=== PATIENT | male | born 1975 | race Caucasian/White ===

== ENCOUNTER 2017-02-05 19:19 | Emergency (ER) | payer BC ==
[2017-02-05 19:24] VITALS: TEMP 98
[2017-02-05] MEDS ORDERED: PANTOPRAZOLE 40 MG/10 ML VIAL IVP STA (19:56)
[2017-02-05] MEDS ORDERED: ACETAMINOPHEN IV (For NPO) 1,000 MG in EMPTY BAG 1 BAG IVPB STA (19:56)
[2017-02-05] MEDS ORDERED: SODIUM CHLORIDE 0.9% 1,000 ML IV STA (19:56)
[2017-02-05] MEDS ORDERED: MAG HYDROX/AL HYDROX/SIMETH 30 ML, HYOSCYAMINE ELIXIR 10 ML, CIMETIDINE HCL 300 MG PO STA ×3 (19:56)
[2017-02-05] MEDS ORDERED: RX INFO: IV CONTRAST WAS GIVEN 1 EACH MISC MISCELLANE PRN (19:56)
[2017-02-05] MEDS ORDERED: ONDANSETRON 4 MG/2 ML VIAL IVP STA (19:56)
--- NOTE | 2017-02-05 19:58 | ED ---
General Adult HPI - General Source: patient, RN notes reviewed, old records reviewed Mode of arrival: ambulatory Limitations: no limitations <Curtis Grigsby - Last Filed: 02/05/17 19:57> <Ty Marroquin - Last Filed: 02/05/17 22:50> - General Chief complaint: Nausea/Vomiting/Diarrhea Stated complaint: Nauseated Time Seen by Provider: 02/05/17 19:43 - History of Present Illness Initial comments: This is a 41-year-old male here for evaluation of bowel pain. Nonspecific abdominal pain episodic for weeks to months, occasionally happens, gets worse and better. Patient has no medical history aside from obesity. Takes no medications again drinks occasionally and does not smoke. He denies modifying factors for symptoms, he states usually gets pain usually eat or drink some water and it helps. This time is not getting any better. He does have occasional nausea and vomiting. Occasional diarrhea although not significant, less than 5 times a day. Patient denies blood disorders vomit. No prior history of abdominal surgery, no prior evaluation for symptoms. (Curtis Grigsby) - Related Data Home Medications Medication Instructions Recorded Confirmed Acetaminophen Tab [Tylenol Tab] 1,000 mg PO Q6HR 02/05/17 02/05/17 Ibuprofen [Motrin] 200 - 400 mg PO Q6HR PRN 02/05/17 02/05/17 Multivitamins, Thera [Multivitamin 1 tab PO DAILY 02/05/17 02/05/17 (formulary)] Allergies Allergy/AdvReac Type Severity Reaction Status Date / Time No Known Allergies Allergy Verified 02/05/17 19:27 Review of Systems ROS Other: All systems not noted in ROS Statement are negative. <Curtis Grigsby - Last Filed: 02/05/17 19:57> ROS Other: All systems not noted in ROS Statement are negative. <Ty Marroquin - Last Filed: 02/05/17 22:50> ROS Statement: Those systems with pertinent positive or pertinent negative responses have been documented in the HPI. Past Medical History Past Medical History: No Reported History History of Any Multi-Drug Resistant Organisms: None Reported Past Surgical History: Appendectomy Past Psychological History: No Psychological Hx Reported Smoking Status: Never smoker Past Alcohol Use History: Occasional Past Drug Use History: None Reported <Curtis Grigsby - Last Filed: 02/05/17 19:57> General Exam Limitations: no limitations General appearance: alert, in no apparent distress Head exam: Present: atraumatic, normocephalic, normal inspection Eye exam: Present: normal appearance, PERRL, EOMI. Absent: scleral icterus, conjunctival injection, periorbital swelling ENT exam: Present: normal exam, mucous membranes moist Neck exam: Present: normal inspection. Absent: tenderness, meningismus, lymphadenopathy Respiratory exam: Present: normal lung sounds bilaterally. Absent: respiratory distress, wheezes, rales, rhonchi, stridor Cardiovascular Exam: Present: regular rate, normal rhythm, normal heart sounds. Absent: systolic murmur, diastolic murmur, rubs, gallop, clicks GI/Abdominal exam: Present: soft, normal bowel sounds. Absent: distended, tenderness, guarding, rebound, rigid Extremities exam: Present: normal inspection, full ROM, normal capillary refill. Absent: tenderness, pedal edema, joint swelling, calf tenderness Back exam: Present: normal inspection Neurological exam: Present: alert, oriented X3, CN II-XII intact Psychiatric exam: Present: normal affect, normal mood Skin exam: Present: warm, dry, intact, normal color. Absent: rash <Curtis Grigsby - Last Filed: 02/05/17 19:57> Course <Curtis Grigsby - Last Filed: 02/05/17 19:57> <Ty Marroquin - Last Filed: 02/05/17 22:50> Vital Signs 02/05/17 19:22 Temperature 98 F Pulse Rate 89 Respiratory 20 Rate Blood Pressure 158/90 O2 Sat by Pulse 97 Oximetry - Reevaluation(s) Reevaluation #1: 02/05/17 19:58 Patient does have symptomatic improvement (Curtis Grigsby) Medical Decision Making - Lab Data Result diagrams: 02/05/17 20:30 02/05/17 20:30 <Ty Marroquin - Last Filed: 02/05/17 22:50> - Lab Data Lab Results 02/05/17 02/05/17 02/05/17 Range/Units 20:30 20:30 20:30 WBC 12.5 H (3.8-10.6) k/uL RBC 5.43 (4.30-5.90) m/uL Hgb 15.9 (13.0-17.5) gm/dL Hct 47.1 (39.0-53.0) % MCV 86.8 (80.0-100.0) fL MCH 29.3 (25.0-35.0) pg MCHC 33.8 (31.0-37.0) g/dL RDW 15.2 (11.5-15.5) % Plt Count 202 (150-450) k/uL Neutrophils % 87 % Lymphocytes % 7 % Monocytes % 3 % Eosinophils % 2 % Basophils % 0 % Neutrophils # 10.9 H (1.3-7.7) k/uL Lymphocytes # 0.8 L (1.0-4.8) k/uL Monocytes # 0.4 (0-1.0) k/uL Eosinophils # 0.2 (0-0.7) k/uL Basophils # 0.1 (0-0.2) k/uL Sodium 146 H (137-145) mmol/L Potassium 4.4 (3.5-5.1) mmol/L Chloride 109 H (98-107) mmol/L Carbon Dioxide 23 (22-30) mmol/L Anion Gap 14 mmol/L BUN 24 H (9-20) mg/dL Creatinine 0.90 (0.66-1.25) mg/dL Est GFR (MDRD) Af Amer >60 (>60 ml/min/1.73 sqM) Est GFR (MDRD) Non-Af >60 (>60 ml/min/1.73 sqM) Glucose 146 H (74-99) mg/dL Plasma Lactic Acid Jordan 1.7 (0.7-2.0) mmol/L Calcium 10.0 (8.4-10.2) mg/dL Total Bilirubin 0.7 (0.2-1.3) mg/dL AST 37 (17-59) U/L ALT 63 (21-72) U/L Alkaline Phosphatase 60 (38-126) U/L Total Protein 7.9 (6.3-8.2) g/dL Albumin 4.8 (3.5-5.0) g/dL Amylase 61 (30-110) U/L Lipase 144 (23-300) U/L Urine Color Urine Appearance (Clear) Urine pH (5.0-8.0) Ur Specific [place] (1.001-1.035) Urine Protein (Negative) Urine Glucose (UA) (Negative) Urine Ketones (Negative) Urine Blood (Negative) Urine Nitrite (Negative) Urine Bilirubin (Negative) Urine Urobilinogen (<2.0) mg/dL Ur Leukocyte Esterase (Negative) 02/05/17 Range/Units 20:30 WBC (3.8-10.6) k/uL RBC (4.30-5.90) m/uL Hgb (13.0-17.5) gm/dL Hct (39.0-53.0) % MCV (80.0-100.0) fL MCH (25.0-35.0) pg MCHC (31.0-37.0) g/dL RDW (11.5-15.5) % Plt Count (150-450) k/uL Neutrophils % % Lymphocytes % % Monocytes % % Eosinophils % % Basophils % % Neutrophils # (1.3-7.7) k/uL Lymphocytes # (1.0-4.8) k/uL Monocytes # (0-1.0) k/uL Eosinophils # (0-0.7) k/uL Basophils # (0-0.2) k/uL Sodium (137-145) mmol/L Potassium (3.5-5.1) mmol/L Chloride (98-107) mmol/L Carbon Dioxide (22-30) mmol/L Anion Gap mmol/L BUN (9-20) mg/dL Creatinine (0.66-1.25) mg/dL Est GFR (MDRD) Af Amer (>60 ml/min/1.73 sqM) Est GFR (MDRD) Non-Af (>60 ml/min/1.73 sqM) Glucose (74-99) mg/dL Plasma Lactic Acid Jordan (0.7-2.0) mmol/L Calcium (8.4-10.2) mg/dL Total Bilirubin (0.2-1.3) mg/dL AST (17-59) U/L ALT (21-72) U/L Alkaline Phosphatase (38-126) U/L Total Protein (6.3-8.2) g/dL Albumin (3.5-5.0) g/dL Amylase (30-110) U/L Lipase (23-300) U/L Urine Color Yellow Urine Appearance Clear (Clear) Urine pH 5.0 (5.0-8.0) Ur Specific [place] 1.026 (1.001-1.035) Urine Protein Negative (Negative) Urine Glucose (UA) Negative (Negative) Urine Ketones Negative (Negative) Urine Blood Negative (Negative) Urine Nitrite Negative (Negative) Urine Bilirubin Negative (Negative) Urine Urobilinogen <2.0 (<2.0) mg/dL Ur Leukocyte Esterase Negative (Negative) Disposition <Curtis Grigsby - Last Filed: 02/05/17 19:57> <Ty Marroquin - Last Filed: 02/05/17 22:50> Clinical Impression: Abdominal pain Disposition: HOME SELF-CARE Condition: Fair Instructions: Acute Diarrhea (ED), Abdominal Pain (ED) Referrals: Anthony Dobbins MD [Primary Care Provider] - 1-2 days Justin Sanz MD [STAFF PHYSICIAN] - 1-2 days
[2017-02-05 20:41] LABS: Basophils # (A) 0.1 k/uL (0-0.2); Basophils % (A) 0 %; CH 29.8; CHCM 34.6; Eosinophils # (A) 0.2 k/uL (0-0.7); Eosinophils % (A) 2 %; HCT 47.1 % (39.0-53.0); HDW 3.39; HGB 15.9 gm/dL (13.0-17.5); Luc # (Auto) 0.14; Luc % (Auto) 1; Lymphocytes # (A) 0.8 k/uL (1.0-4.8); Lymphocytes % (A) 7 %; MCH 29.3 pg (25.0-35.0); MCHC 33.8 g/dL (31.0-37.0); MCV 86.8 fL (80.0-100.0); Mean Platelet Volume 7.7; Monocytes # (A) 0.4 k/uL (0-1.0); Monocytes % (A) 3 %; Neutrophils # (A) 10.9 k/uL (1.3-7.7); Neutrophils % (A) 87 %; RBC 5.43 m/uL (4.30-5.90); RDW 15.2 % (11.5-15.5); WBC 12.5 k/uL (3.8-10.6); WBC (Perox) 12.45
[2017-02-05 20:46] LABS: Appearance,Urine Clear (Clear); Bilirubin,Urine Negative (Negative); Glucose,Urine (UA) Negative (Negative); Ketones,Urine Negative (Negative); Leukocyte Esterase,Urine Negative (Negative); Nitrite,Urine Negative (Negative); Protein,Urine Negative (Negative); Specific Gravity,Urine 1.026 (1.001-1.035); UA Billing (MACRO vs. MICRO) CHEM; Urobilinogen,Urine <2.0 mg/dL (<2.0)
[2017-02-05 21:01] LABS: ALT 63 U/L (21-72); AST 37 U/L (17-59); Alkaline Phosphatase 60 U/L (38-126); Amylase 61 U/L (30-110); Anion Gap 14 mmol/L; Blood Urea Nitrogen 24 mg/dL (9-20); Carbon Dioxide 23 mmol/L (22-30); Chloride 109 mmol/L (98-107); Glucose 146 mg/dL (74-99); Non-African American GFR(MDRD) >60 (>60 ml/min/1.73 sqM); Potassium 4.4 mmol/L (3.5-5.1); Sodium 146 mmol/L (137-145); Total Bilirubin 0.7 mg/dL (0.2-1.3); Total Protein 7.9 g/dL (6.3-8.2)
--- NOTE | 2017-02-05 21:27 | CT ---
EXAMINATION TYPE: CT abdomen pelvis w con DATE OF EXAM: 02/05/2017 9:14 PM COMPARISON: None HISTORY: Nausea and vomiting. CT DLP: 3083.50 mGycm Automated exposure control for dose reduction was used. TECHNIQUE: Helical acquisition of images was performed from the lung bases through the pelvis. CONTRAST: Performed without Oral Contrast and with IV Contrast, patient injected with 100 mL of Omnipaque 300. FINDINGS: Lung bases are clear of infiltrate. There is no pleural effusion. There is no pericardial effusion. Liver spleen pancreas gallbladder appear normal. Bile ducts are not dilated. There is no adrenal mass . There is a 7 cm cyst in the upper pole right kidney. There is no hydronephrosis. There is a [address] on the lower pole left kidney. There is no retroperitoneal adenopathy. There is no ascites. There are fluid levels in the colon. Appendix is not seen. There is no sign of appendicitis. I see no bony destructive process. There is old compression fracture of T11 vertebra. IMPRESSION: THERE IS FLUID IN THE LARGE BOWEL CONSISTENT WITH DIARRHEA. NO FREE AIR. LARGE RIGHT RENAL CYST.
[2017-02-05 23:09] VITALS: BP 125/55; PULSE 77; RESP 16
== END 2017-02-05 23:07 | disposition home or self-care (01) ==
LOC: EC 19:19
DX: R10.9 Unspecified abdominal pain (principal); R11.2 Nausea with vomiting, unspecified; Z79.899 Other long term (current) drug therapy; E66.9 Obesity, unspecified
CPT/HCPCS: 96375; 96361; 96374 ×2; 99284 ×2; 36415; 80053; 82150; 83605; 83690; 85025; 81003; 87086; 74177; J2405; Q9967; J0131; C9113

== ENCOUNTER 2021-05-30 09:17 | Day surgery (SDC) | payer BC, OTHER ==
[2021-05-26 11:54] VITALS: BMI 36.6
[~2021-05-30 09:17] MED LIST: LACTATED RINGERS 1,000 ML IV SCH; LIDOCAINE 1% (10MG/ML) FOR IV START INTRADERMA PRN
[2021-05-30 09:58] VITALS: TEMP 98.3
[2021-05-30] MEDS ORDERED: PROPOFOL 10 MG/ML 20 ML VIAL IV ONE (10:38)
[2021-05-30] MEDS ORDERED: LIDOCAINE 1% INJ 10MG/ML (20 ML MDV) ONE (10:38)
--- NOTE | 2021-05-30 10:42 | P.GSHP ---
History of Present Illness H&P Date: 05/30/21 Chief Complaint: Iron deficiency anemia 46-year-old male here today for upper and lower endoscopy. Patient was found to be anemic. He states he was overdoing it with NSAID use recently. Denies rectal bleeding or melena. No change in bowel habits. No family history of co eusebia cancer. No significant alcohol use. Past Medical History Past Medical History: No Reported History Additional Past Medical History / Comment(s): LOW IRON History of Any Multi-Drug Resistant Organisms: None Reported Past Surgical History: Appendectomy Past Anesthesia/Blood Transfusion Reactions: No Reported Reaction Smoking Status: Never smoker - Past Family History Mother Family Medical History: Cancer Medications and Allergies Home Medications Medication Instructions Recorded Confirmed Type Cbd Gummies 1 - 2 tab PO DAILY 05/26/21 05/30/21 History Cinnamon Bark [Cinnamon] 500 mg PO DAILY 05/26/21 05/26/21 History Iron. 1 tab PO DAILY 05/26/21 05/30/21 History Naproxen Sodium [Aleve] 220 mg PO BID PRN 05/26/21 05/26/21 History Vit B. 1 tab PO DAILY 05/26/21 05/30/21 History Vit C. 1 tab PO DAILY 05/26/21 05/30/21 History Vit D3 1 tab PO DAILY 05/26/21 05/30/21 History Allergies Allergy/AdvReac Type Severity Reaction Status Date / Time No Known Allergies Allergy Verified 05/30/21 09:51 Surgical - Exam Vital Signs Temp Pulse Resp BP Pulse Ox 98.3 F 58 L 16 133/82 96 05/30/21 09:54 05/30/21 09:54 05/30/21 09:54 05/30/21 09:54 05/30/21 09:54 Physical exam: General: Well-developed, well-nourished HEENT: Normocephalic, sclerae nonicteric Abdomen: Nontender, nondistended Extremities: No edema Neuro: Alert and oriented Assessment and Plan (1) Iron deficiency anemia Narrative/Plan: Will proceed with upper and lower endoscopy Current Visit: Yes Status: Acute Code(s): D50.9 - IRON DEFICIENCY ANEMIA, UNSPECIFIED SNOMED Code(s): 88021517
--- NOTE | 2021-05-30 11:01 | P.PCN ---
Date of Procedure: 05/30/21 Procedure(s) Performed: PREOPERATIVE DIAGNOSIS: Iron deficiency anemia POSTOPERATIVE DIAGNOSIS: Mild gastritis, small hiatal hernia, mild distal esophagitis, PROCEDURE: 1. EGD with biopsy 2. Colonoscopy ANESTHESIA: MAC SURGEON: Mejia Gamino M.D. SPECIMENS: , GE junction ENDOSCOPIC PROCEDURE: The patient was on the endoscopy table in the left decubitus position. The Olympus gastroscope was inserted into the oropharynx and passed under direct visualization to the region of the third portion of the duodenum. From that point the scope was slowly withdrawn inspecting all surfaces carefully. There were no neoplastic inflammatory or polypoid lesions throughout the duodenum. The pylorus was widely patent. The stomach was carefully inspected. There was mild gastritis present. A biopsy of the antrum took place to rule out H. pylori. Retroflexion revealed a small sliding hiatal hernia. The GE junction was present 1.5 cm above the diaphragmatic hiatus. At the GE junction there was mild non-circumferential inflammatory changes without bleeding. Biopsies of the GE junction where the inflammation was seen was taken. The remainder the esophagus appear normal. The patient was kept on the endoscopy table in the left decubitus position. The Olympus colonoscope was inserted into the anus and passed under direct visualization to the base of the cecum. The appendiceal orifice was visualized. From that point the scope was slowly withdrawn inspecting all surfaces carefully. There were no neoplastic inflammatory or polypoid lesions throughout the cecum, ascending, transverse, descending, sigmoid and rectum. There was no visible diverticulosis noted. The patient's prep was slightly suboptimal. Digital rectal examination was normal. The patient was taken to the recovery room in stable condition per anesthesia guidelines. RECOMMENDATIONS: Continue minimizing NSAID use. Antiacid therapy. Await biopsies results. Anemia may have been related to upper GI source with the heavy NSAID use previously. Repeat colonoscopy 10 years.
[2021-05-30 11:33] VITALS: BP 139/82; PULSE 57; RESP 18
== END 2021-05-30 11:49 | disposition home or self-care (01) ==
LOC: ORWHC2ENDO 09:17
PROVIDERS: ATTEND Surgery
DX: K29.50 Unspecified chronic gastritis without bleeding (principal); K21.00 Gastro-esophageal reflux disease with esophagitis, without bleeding; K44.9 Diaphragmatic hernia without obstruction or gangrene; D50.9 Iron deficiency anemia, unspecified; Z79.1 Long term (current) use of non-steroidal anti-inflammatories (NSAID); Z90.89 Acquired absence of other organs
CPT/HCPCS: 88305; 45378; 43239; J2001; J2704

== ENCOUNTER 2023-05-15 10:50 | Day surgery (SDC) | payer OTHER ==
[~2023-05-15 10:50] MED LIST changes: +ACETAMINOPHEN TAB 500 MG TAB PO PRN; +DEXAMETHASONE SOD PHOSPHATE 10 MG/ML 1 ML VIAL IV PRN; +DOCUSATE 100 MG CAP PO PRN; +FAMOTIDINE 20 MG/2 ML VIAL IVP PRN; +HYDROmorphone 0.5 MG/0.5 ML SYRINGE IVP PRN; +KETOROLAC 15 MG/ML 1 ML VIAL IVP PRN; -LACTATED RINGERS 1,000 ML IV SCH; +ONDANSETRON 4 MG/2 ML VIAL IVP PRN; +ROPIVACAINE/EPI/CLONIDINE/KET 50 ML SYRINGE MISCELLANE PRN; +TRANEXAMIC 1,000 MG/100ML-NACL 1,000 MG in SALINE 1 100ML.BAG IV PRN; +TRANEXAMIC 1,000 MG/100ML-NACL 1,000 MG in SALINE 1 100ML.BAG IVPB PRN; +VANCOMYCIN 1,750 MG in SODIUM CHLORIDE 0.9% 500 ML 500 ML IVPB PRN; +ceFAZolin 3 GM in SODIUM CHLORIDE 0.9% 100 ML IVPB PRN; +oxyCODONE ER 10 MG TAB.ER.12H PO PRN
[2023-05-15] MEDS: LACTATED RINGERS 1,000 ML IV SCH ×2 (11:43→19:23)
[2023-05-15] MEDS ORDERED: MIDAZOLAM 2 MG/2 ML VIAL IV ONE (12:16)
[2023-05-15] MEDS ORDERED: fentaNYL (PF) 50 MCG/1 ML VIAL IV ONE (12:16)
[2023-05-15] MEDS ORDERED: fentaNYL (PF) 50 MCG/ML 2 ML AMP ONE (12:32)
[2023-05-15] MEDS ORDERED: PHENYLEPHRINE-0.9% NACL SYG 1,000 MCG/10 ML SYRINGE ONE (12:32)
[2023-05-15] MEDS ORDERED: TRANEXAMIC 1,000 MG/100ML-NACL PREMIX BAG ONE (12:32)
[2023-05-15] MEDS ORDERED: ROCURONIUM 10 MG/ML (5 ML VIAL) IV ONE (12:32)
[2023-05-15] MEDS ORDERED: GLYCOPYRROLATE 0.2 MG/ML 2 ML VIAL ONE (12:32)
[2023-05-15] MEDS ORDERED: NEOSTIGMINE 1 MG/ML 10 ML VIAL ONE (12:32)
[2023-05-15] MEDS ORDERED: ROPIVACAINE 5 MG/ML 30 ML VIAL ONE (12:32)
[2023-05-15] MEDS ORDERED: PROPOFOL 10 MG/ML 20 ML VIAL IV ONE (12:32)
[2023-05-15] MEDS ORDERED: SODIUM CHLORIDE 0.9% (PF) 10 ML VIAL ONE (12:32)
[2023-05-15] MEDS ORDERED: SUCCINYLCHOLINE CHLORIDE 200 MG/10 ML VIAL IV ONE (12:32)
[2023-05-15] MEDS ORDERED: LIDOCAINE 4% LTA KIT (4 ML) TOPICAL ONE (12:32)
--- NOTE | 2023-05-15 15:04 | P.ANPRN ---
Procedure Note - Anesthesia - Nerve Block Performed Right Adductor Canal Single Time Out Performed: Yes (1216) Date of Procedure: 05/15/23 Procedure Start Time: 12:17 Procedure Stop Time: 12:22 Location of Patient: PreOp Indication: Acute Post-Operative Pain, Requested by Surgeon Specifically requested for management of pain by DrBin: Michael Guardado Sedation Type: Sedate with meaningful contact maintained Preparation: Sterile Prep Position: Supine Catheter: None Needle Types: Pajunk Needle Gauge: 21 Ultrasound used to visualize needle placement: Yes Ultrasound used to observe medication spread: Yes Injectate: 0.5% Ropivacaine (see comment for volume) (20cc + 5cc nacl pf) Blood Aspirated: No Pain Paresthesia on Injection Noted: No Resistance on Injection: Normal Image Stored and Saved: Yes Events: Uneventful and Well Tolerated
--- NOTE | 2023-05-15 15:05 | P.ANPRN ---
Procedure Note - Anesthesia - Nerve Block Performed Right iPack Single Time Out Performed: Yes (1216) Date of Procedure: 05/15/23 Procedure Start Time: Procedure Stop Time: Location of Patient: PreOp Indication: Acute Post-Operative Pain, Requested by Surgeon Specifically requested for management of pain by DrBin: Michael Guardado Sedation Type: Sedate with meaningful contact maintained Preparation: Sterile Prep Position: Supine Catheter: None Needle Types: Pajunk Needle Gauge: 21 Ultrasound used to visualize needle placement: Yes Ultrasound used to observe medication spread: Yes Injectate: 0.5% Ropivacaine (see comment for volume) (20cc + 5cc nacl pf) Blood Aspirated: No Pain Paresthesia on Injection Noted: No Resistance on Injection: Normal Image Stored and Saved: Yes Events: Uneventful and Well Tolerated
[2023-05-15] MEDS ORDERED: HYDROmorphone 1 MG/ML 1 ML SYRINGE IVP PRN (15:22)
[2023-05-15] MEDS ORDERED: hydrOXYzine pamoate 25 MG CAP PO PRN (15:22)
[2023-05-15] MEDS ORDERED: HYDROmorphone 0.5 MG/0.5 ML SYRINGE IVP PRN ×2 (15:22)
[2023-05-15] MEDS ORDERED: NALOXONE 0.4 MG/ML 1 ML VIAL IV PRN (15:22)
--- NOTE | 2023-05-15 15:28 | P.OP ---
Date of Procedure: 05/15/23 Preoperative Diagnosis: 1. Severe right knee osteoarthritis 2. BMI 41 Postoperative Diagnosis: Same Procedure(s) Performed: Right total knee arthroplasty Implants: 1. [place] Triathlon CR Femur Size #5 2. Ashley Triathlon Taft Tibial Base Size #6 3. Ashley Triathlon CS poly Size #9 4. Ashley Triathlon all poly patella, Size #35 Anesthesia: DIAN, regional Surgeon: Michael Guardado Landscape Supervisor #1: Ana Malhotra Estimated Blood Loss (ml): 200 IV fluids (ml): 1,200 Pathology: none sent Condition: stable Disposition: PACU Indications for Procedure: I met with the patient preoperatively in the office setting and discussed treatment of their symptomatic knee arthritis. They failed a long course of nonsurgical treatment and elected to proceed with an elective total knee replacement. I discussed the potential risks and complications at length and gave them ample time to ask questions. Risks discussed included: risks from anesthesia, superficial site surgical infection, acute and/or chronic periprosthetic joint infection, delayed wound healing, drainage, wound necrosis, instability, stiffness, stiffness requiring manipulation and/or revision surgery, damage to local blood vessels or nerves, aseptic loosening of the implants, extensor mechanism issues including disruption, patellar maltracking, avascular necrosis etc., continued or worsened knee pain, generalized dissatisfaction with surgical outcome, need for revision surgery, an inability to regain preinjury level of function, DVT, PE, other medical complications, and possibly loss of life or limb. The patient voiced their understanding that while these are the most common complications other less common complications are possible. They provided both their verbal and written consent to go forward with surgery. Operative Findings: Severe tricompartmental knee osteoarthritis Description of Procedure: The patient was identified in preoperative holding and the correct operative extremity was verified and marked with a marker. I reviewed the consent form with the patient at length. All of their questions were answered. The patient was given a block by anesthesia. They were then brought back to the operating room. They were transferred onto the operating room table where a general anesthetic, preoperative antibiotics, and tranexamic acid were administered by anesthesia. A tourniquet was applied to the proximal aspect of the operative extremity. The contralateral extremity was padded under the heel and secured to the operating room table with a nonsterile blue towel and tape. The ipsilateral arm was carefully draped across the patient's chest and secured with a pillow and foam. A post was applied over the lateral aspect of the ipsilateral thigh and a bolster was placed under the ipsilateral foot. I verified that the operative extremity was stable and the knee was flexed to 90. The operative extremity was then placed in a leg son, nonsterile drapes were applied, and the extremity was prepped and draped sterilely in the standard sterile fashion. Prior to starting surgery timeout was performed identifying the correct patient, operative extremity, and procedure. The leg was then elevated, exsanguinated with an Esmarch bandage, and the tourniquet was inflated. An anterior midline incision was made sharply with a scalpel. Once I had dissected deep to the superficial fascial layer medial and lateral flaps were elevated. A medial parapatellar arthrotomy was created. Upon opening the knee joint there were diffuse arthritic changes in all 3 compartments. The anterior horn of the medial meniscus were sharply released and a medial release was performed around the posterior medial corner of the knee to facilitate retractor placement. The fat pad was excised with electrocautery. The patella was found to be severely arthritic and a provisional cut was made with a sagittal saw to facilitate mobilization of the extensor mechanism during the procedure. Remnants of the ACL and PCL were then excised from the notch. 4 mm pins were then placed within the incision in the medial distal femur and proximal tibia. Arrays were applied to the pins and I verified they were completely tightened. The knee was then registered with the [employer] robot and manipulations in implant position were made to balance the knee and opitmize implant position. Using the Sanjiv robotic saw all cuts were made in accordance with our plan. After all bony fragments had been removed the cuts were verified with the planar probe. The tibia was then subluxed forward and sized. The knee was brought into flexion and a lamina policy value calculator was placed to allow removal of the meniscal remnants both medially and laterally as well as posterior osteophytes. Local anesthetic was then infiltrated around the joint capsule. Trial implants were then placed within the knee. Range of motion and collateral ligament tension was then evaluated. Adjustments in implant size and position were then made accordingly. Once the knee was felt to be appropriately balanced the Sanjiv pins were removed. The patella was then recut, sized, and punched. A trial patellar button was then placed. With the trial components in place, the patella tracked midline. The femur was then drilled and the trial component removed. The trial tibial component was then appropriately rotated, pinned, and prepared for the keel. All trial components were then removed from the knee. The knee was thoroughly irrigated with pulsatile lavage. Cement was prepared via vacuum mixing in a bowl on the back table. I then hand pressurized cement into the femur and tibia and placed the implants beginning with the tibial base tray and poly liner, femoral component, and finally the patellar button. All extruded cement was removed including from the pin sites. Once the cement had hardened the knee was evaluated one final time with the final polyethylene liner in place. The knee had full extension and flexion and felt stable to varus and valgus stress throughout the arc of motion. The tourniquet was released and with the tourniquet down the patella tracked midline. All bleeders were controlled with electrocautery. The knee was then soaked for 3 minutes with a dilute Betadine soak. The knee was thoroughly irrigated using 3 L of sterile saline and pulsatile lavage. A deep drain was placed. The extensor mechanism was then reapproximated using pop off Vicryl sutures followed by a running barbed suture. The knee was then closed in layers with a 0 strata fix for the deep fascial layer, 2-0 strata fix for the superficial subcutaneous layer and Monocryl and Steri-Strips for the skin. A sterile dressing and drain sponge were applied. I verified that all instrument, sponge, and sharp counts were correct. The patient was then transferred off the operating room table, extubated, and brought to recovery having tolerated the procedure well. Ana Malhotra PA-C was required as a skilled assistant public defender due to the complexity of the procedure for patient positioning, draping, retraction, placement of hardware, and closure of wound. PLAN: The patient can weight-bear as tolerated on the operative extremity. DVT prophylaxis with aspirin 81 mg twice a day based on preoperative risk stratification. Follow-up in the office in 2 weeks for wound check and x-rays of the knee including an AP and lateral.
--- NOTE | 2023-05-15 15:55 | XR ---
EXAMINATION TYPE: XR knee limited RT DATE OF EXAM: 05/15/2023 3:50 PM INDICATION: Patient age:Male; 48 years old; Reason for study: Evaluation for Postop abnormality and alignment; COMPARISON: None. TECHNIQUE: The Right knee(s) was examined in Frontal, lateral projections FINDINGS: Status post total knee arthroplasty changes with hardware in appropriate alignment and in tact. No evidence of fracture. Subcutaneous lucencies and lucencies within the joint consistent with surgical changes. Drainage tubing projects over the upper joint space in the anterior distal femur. IMPRESSION: Status post total knee arthroplasty changes with hardware intact and appropriate alignment. No fractu res identified.
[2023-05-15] MEDS: HYDROcodone/APAP 5-325MG 1 EACH TAB PO PRN (17:11)
--- NOTE | 2023-05-15 18:41 | P.CONS ---
History of Present Illness - Reason for Consult Consult date: 05/15/23 - Chief Complaint medical management - History of Present Illness 48-year-old man with obesity class III, osteoarthritis presented for right TKA. Medicine consulted by orthopedic surgery service for medical management. Patient's only complaint at this time is pain for which she received in [place] shortly before my evaluation. Patient otherwise denies any other issues at this time including fevers, chills, nausea, vomiting, chest pain, palpitations, syncope, ischemic, cough, dyspnea, abdominal, constipation, diarrhea, dysuria, dyschezia, numbness/weakness of extremities. Patient denies history of high blood pressure, high cholesterol, diabetes, heart disease, kidney disease, liver disease. Upon my evaluation, patient was afebrile, 144/78, heart rate 83, 97% on room air. No lab work to review. Knee x-ray appears to have intact hardware with appropriate alignment. All Systems reviewed and pertinent positives and negatives noted in HPI, all other symptoms are negative Gen: in no apparent distress, resting comfortably in bed Eyes: PERRL, no scleral injection or icterus HENT: normocephalic, atraumatic, good hearing acuity, moist mucous membranes Neck: no tracheal deviation, full range of motion Resp: good air exchange, breathing comfortably with no accessory muscle use, no tactile fremitus CVS: good distal perfusion x 4, trace pitting edema GI: soft, NTTP, ND, no hepatosplenomegaly : no suprapubic tenderness, no CVAT, vasquez catheter not present MSK: no clubbing, no cyanosis, no noted contractures of extremities Skin: no noted rashes, petechiae; temperature of skin is appropriate Neuro: moving all extremities without signs of weakness, CN II-XII intact Psych: cooperative, euthymic mood, insight and judgment intact Labs and imaging as above Assessment: Osteoarthritis Status post right TKA Hypertension Obesity class III Plan: Vital signs reviewed and noted in the HPI Lab work reviewed and noted in the HPI Knee x-ray reviewed and noted in HPI above Pain control: [place] 5/325 every 6 hours when necessary with 0.5 mg every 3 hours of Dilaudid for breakthrough pain Recommend weight loss management outpatient via lifestyle modification as well as bariatric referral We'll not treat hypertension at this time as it is related to pain, we'll consider addition of antihypertensive once pain is better controlled and if pressure is still elevated Patient is full code Past Medical History Past Medical History: No Reported History Additional Past Medical History / Comment(s): LOW IRON History of Any Multi-Drug Resistant Organisms: MRSA Year Discovered:: 04/2023 MDRO Source:: nasal swab Past Surgical History: Appendectomy Past Anesthesia/Blood Transfusion Reactions: No Reported Reaction Past Psychological History: No Psychological Hx Reported Smoking Status: Never smoker Past Alcohol Use History: Occasional Past Drug Use History: Marijuana Additional Drug Use History / Comment(s): CBD GUMMIES - Past Family History Mother Family Medical History: Cancer Medications and Allergies Home Medications Medication Instructions Recorded Confirmed Type Cbd Gummies 1 - 2 tab PO DAILY 05/26/21 05/15/23 History Cinnamon Bark [Cinnamon] 500 mg PO DAILY 05/26/21 05/15/23 History Iron. 1 tab PO DAILY 05/26/21 05/15/23 History Naproxen Sodium [Aleve] 220 mg PO BID PRN 05/26/21 05/15/23 History Vit B. 1 tab PO DAILY 05/26/21 05/15/23 History Vit C. 1 tab PO DAILY 05/26/21 05/15/23 History Vit D3 1 tab PO DAILY 05/26/21 05/15/23 History Omeprazole [PriLOSEC] 20 mg PO -BRKFST #90 cap 05/30/21 05/15/23 Rx Allergies Allergy/AdvReac Type Severity Reaction Status Date / Time No Known Allergies Allergy Verified 05/15/23 11:17 Physical Exam Osteopathic Statement: *. No significant issues noted on an osteopathic structural exam other than those noted in the History and Physical/Consult. Vitals: Vital Signs Temp Pulse Resp BP Pulse Ox 05/15/23 18:06 83 144/78 97 05/15/23 17:51 100 155/101 95 05/15/23 17:36 87 155/97 95 05/15/23 17:22 72 146/95 95 05/15/23 17:07 75 149/82 95 05/15/23 16:51 63 145/87 93 L 05/15/23 16:36 70 156/81 96 05/15/23 15:55 76 16 154/73 93 L 05/15/23 15:32 68 16 142/73 99 05/15/23 15:17 98 F 85 16 155/77 99 05/15/23 12:25 71 16 127/82 96 05/15/23 11:30 98.0 F 89 16 138/80 95 Intake and Output 05/15/23 05/15/23 05/15/23 06:59 14:59 22:59 Intake Total 1400 300 Output Total 300 Balance 1100 300 Intake: IV 1400 100 Intake, IV Titration 200 Amount Lactated Ringers 1,000 ml 200 @ 100 mls/hr IV .Q10H [facility] Rx#:[id number] Output: Estimated Blood Loss 300 Other: Weight 123.8 kg 123.8 kg
[2023-05-15] MEDS: SENNOSIDES-DOCUSATE SODIUM 1 EACH TAB PO SCH (20:51)
[2023-05-15] MEDS: ASPIRIN 81 MG PO SCH (20:51)
[2023-05-15] MEDS: ceFAZolin 3 GM in SODIUM CHLORIDE 0.9% 100 ML IVPB SCH (21:00)
[2023-05-16] MEDS: LACTATED RINGERS 1,000 ML IV SCH ×4 (01:07→19:47)
[2023-05-16] MEDS: HYDROcodone/APAP 5-325MG 1 EACH TAB PO PRN ×4 (01:35→19:46)
[2023-05-16] MEDS: ceFAZolin 3 GM in SODIUM CHLORIDE 0.9% 100 ML IVPB SCH (04:35)
[2023-05-16] MEDS: ASPIRIN 81 MG PO SCH ×2 (07:28→19:46)
[2023-05-16 08:36] LABS: Basophils # (A) 0.02 X 10*3/uL (0.00-0.10); Basophils % (A) 0.2 %; Eosinophils # (A) 0.01 X 10*3/uL (0.04-0.35); Eosinophils % (A) 0.1 %; HCT 36.9 % (39.6-50.0); HGB 12.7 d/dL (12.0-15.0); Lymphocytes # (A) 1.44 X 10*3/uL (0.90-5.00); Lymphocytes % (A) 12.1 %; MCH 29.7 pg (27.0-32.0); MCHC 34.4 d/dL (32.0-37.0); MCV 86.2 FL (80.0-97.0); Mean Platelet Volume 10.3 FL (9.5-12.2); Monocytes # (A) 0.74 X 10*3/uL (0.20-1.00); Monocytes % (A) 6.2 %; NRBC Per 100 WBC 0 X 10*3/uL (0.00-0.01); Neutrophils # (A) 9.59 X 10*3/uL (1.80-7.70); Neutrophils % (A) 80.8 %; Platelet Count 151 X 10*3/uL (140-440); RBC 4.28 X 10*6/uL (4.40-5.60); RDW 14.5 % (11.5-14.5); WBC 11.87 X 10*3/uL (4.50-10.00)
[2023-05-16 09:09] LABS: Blood Urea Nitrogen 17.6 mg/dL (9.0-27.0); Calcium 8.5 mg/dL (8.7-10.3); Carbon Dioxide 22.3 mmol/L (21.6-31.8); Chloride 103 mmol/L (96-109); Glucose 124 mg/dL (70-110); Magnesium 2.1 mg/dL (1.5-2.4); Potassium 3.9 mmol/L (3.5-5.5); Sodium 138 mmol/L (135-145)
--- NOTE | 2023-05-16 09:42 | P.DS ---
Providers Expected date of discharge: 05/16/23 Attending physician: Michael Guardado Consults: 05/15/23 15:22 Consult Physician Routine Consulting Provider: Luis Thakur Consult Reason/Comments: medical management Do you want consulting provider notified?: Yes Primary care physician: Anthony Dobbins [facility] Course: This is a 48-year-old male who has been followed in our office by Dr. Guardado for continued complaints of right knee pain due to right knee osteoarthritis. Treatment options were discussed, and patient elected to undergo a right total knee arthroplasty. Patient was seen pre-operatively by Dr. Dobbins and cleared for surgery. Patient underwent a right total knee arthroplasty on 05/15/[address] Guardado. The procedure was performed without complication or sequelae. The patient is doing fairly well postoperatively. Vital signs and labs are stable on postoperative day #1. Patient was examined bedside this morning with Dr. Guardado. Patient states he is overall doing very well and the pain in his right knee is well-controlled. He is ambulating with a walker with minimal assistance. Patient is comfortable being discharged home today. Patient has no new complaints this morning. On examination, the patient is sitting up in bed in no apparent distress. He is alert and orientated 3. On inspection of the right knee, there is a clean, dry, intact surgical dressing in place. Patient has good strength and ROM of the right ankle and toes. Motor and sensory function is intact of the right lower extremity. The dorsalis pedis pulse is easily palpable, the right lower extremity is warm and well perfused with brisk capillary refill. Calf is soft and non-tender to palpation. Hemovac drain removed bedside during examination. Patient is discharged home with home health care today in good condition, pending medical clearance. Patient will follow-up at [facility] in the office in two weeks. Please see med rec for accurate list of discharge medication. Plan - Discharge Summary Discharge Rx Participant: No New Discharge Prescriptions: New Docusate [Colace] 100 mg PO BID #60 capsule HYDROcodone/APAP 5-325MG [Dows 5-325] 1 - 2 tab PO Q6HR PRN 7 Days #32 tab PRN Reason: Pain Aspirin 81 mg PO BID 30 Days #60 tab Omeprazole 40 mg PO DAILY 30 Days #30 cap Diclofenac Sodium [Voltaren] 75 mg PO BID 30 Days #60 tab No Action Vit D3 1 tab PO DAILY Vit C. 1 tab PO DAILY Cbd Gummies 1 - 2 tab PO DAILY Naproxen Sodium [Aleve] 220 mg PO BID PRN PRN Reason: Pain Vit B. 1 tab PO DAILY Iron. 1 tab PO DAILY Cinnamon Bark [Cinnamon] 500 mg PO DAILY Omeprazole [PriLOSEC] 20 mg PO -KFST #90 cap Discharge Medication List Cbd Gummies 1 - 2 tab PO DAILY 05/26/21 [History] Cinnamon Bark [Cinnamon] 500 mg PO DAILY 05/26/21 [History] Iron. 1 tab PO DAILY 05/26/21 [History] Naproxen Sodium [Aleve] 220 mg PO BID PRN 05/26/21 [History] Vit B. 1 tab PO DAILY 05/26/21 [History] Vit C. 1 tab PO DAILY 05/26/21 [History] Vit D3 1 tab PO DAILY 05/26/21 [History] Omeprazole [PriLOSEC] 20 mg PO -KFST #90 cap 05/30/21 [Rx] Aspirin 81 mg PO BID 30 Days #60 tab 05/16/23 [Rx] Diclofenac Sodium [Voltaren] 75 mg PO BID 30 Days #60 tab 05/16/23 [Rx] Docusate [Colace] 100 mg PO BID #60 capsule 05/16/23 [Rx] HYDROcodone/APAP 5-325MG [Dows 5-325] 1 - 2 tab PO Q6HR PRN 7 Days #32 tab 05/16/23 [Rx] Omeprazole 40 mg PO DAILY 30 Days #30 cap 05/16/23 [Rx] Follow up Appointment(s)/Referral(s): Residential Home,Health [NON-STAFF] - 1-2 Days Michael Guardado MD [Medical Doctor] - 2 Weeks Activity/Diet/Wound Care/Special Instructions: Weight bear to tolerance on operative extremity with a walker. Keep operative dressing in place until follow-up appointment in the office. Call the office if dressing becomes saturated or falls off. May shower over dressing. Take pain medication as prescribed. Take aspirin 81mg twice a day x 4 weeks for blood clot prevention. Follow-up in the office in two weeks at [facility]. Call the office with any questions or concerns, Discharge Disposition: HOME WITH HOME HEALTH SERVICES
--- NOTE | 2023-05-16 10:59 | P.PN ---
Subjective Progress Note Date: 05/16/23 Subjective: Patient seen and examined at bedside. No acute events overnight. Has sign ificant right knee pain with ambulation. Denies any other new complaints. Pertinent positives and negatives as discussed above, a complete review of systems was performed and all other systems are negative. Vitals Signs Reviewed. General: nontoxic, no distress, appears at stated age, obese Derm: warm, dry, dressing clean, dry, intact Head: atraumatic, normocephalic, symmetric Eyes: EOMI, no lid lag, anicteric sclera Mouth: no lip lesion, mucus membranes moist Cardiovascular: S1S2 reg, no murmur Lungs: CTA bilateral, no rhonchi, no rales , no accessory muscle use Abdominal: soft, nontender to palpation, no guarding, no appreciable organomegaly Ext: no gross muscle atrophy, no edema, no contractures Neuro: CN II-XI grossly intact, no focal neuro deficits Psych: Alert, oriented, appropriate affect Data Reviewed Today: Pertinent Labs: WBC 11.7, hemoglobin 12.7, sodium 138, creatinine 1 Imaging: No new imaging today Assessment and Plan: Osteoarthritis status post right TKA Hypertension Obesity class III -Pain control with oral [place] as needed, IV Dilaudid as needed -Aspirin 81 mg twice a day for DVT prophylaxis -Blood pressure now well controlled with adequate pain control -Counseled regarding lifestyle modifications to reduce weight Patient is medically optimized for discharge home. Thank you for allowing us to participate in the care of this pleasant patient. Do not hesitate to contact us with questions. Someone can be reached from the [facility] hospitalist group all hours of the day at [phone] or via perfect serve. Objective - Vital Signs Vital signs: Vital Signs Temp 99.0 F 05/16/23 07:10 Pulse 74 05/16/23 07:10 Resp 16 05/16/23 07:10 BP 122/68 05/16/23 07:10 Pulse Ox 95 05/16/23 07:10 FiO2 Intake & Output 05/15/23 05/16/23 05/16/23 18:59 06:59 18:59 Intake Total 1700 Output Total 300 60 Balance 1400 -60 Weight 123.8 kg Intake: IV 1500 Intake, IV Titration 200 Amount Lactated Ringers 1,000 ml 200 @ 100 mls/hr IV .Q10H [facility] Rx#:[id number] Output: Drainage 60 Right 60 Estimated Blood Loss 300 Other: # Voids 1 - Labs CBC & Chem 7: 05/16/23 05:48 05/16/23 05:48 Labs: Abnormal Lab Results - Last 24 Hours (Table) 05/16/23 05/16/23 Range/Units 05:48 05:48 WBC 11.87 H (4.50-10.00) X 10*3/uL RBC 4.28 L (4.40-5.60) X 10*6/uL Hct 36.9 L (39.6-50.0) % Neutrophils # 9.59 H (1.80-7.70) X 10*3/uL Eosinophils # 0.01 L (0.04-0.35) X 10*3/uL Anion Gap 12.70 H (4.00-12.00) mmol/L Glucose 124 H (70-110) mg/dL Calcium 8.5 L (8.7-10.3) mg/dL
[2023-05-16] MEDS: SENNOSIDES-DOCUSATE SODIUM 1 EACH TAB PO SCH (19:46)
[2023-05-17] MEDS: HYDROcodone/APAP 5-325MG 1 EACH TAB PO PRN ×2 (02:35→10:09)
[2023-05-17 08:53] VITALS: BP 151/81; PULSE 93; RESP 17
[2023-05-17 09:38] VITALS: TEMP 97.7
[2023-05-17] MEDS: ASPIRIN 81 MG PO SCH (10:09)
--- NOTE | 2023-05-17 11:27 | P.PN ---
Subjective Progress Note Date: 05/17/23 This patient is a 48- year old male who is status-post right total knee arthroplasty on 05/15/23. Today is post-operative day #2. Patient is examined bedside with Dr. Guardado. He is up to the bedside chair. He is overall doing well and the pain in his knee is well-controlled. Discharge was held yesterday, as the patient has decided to discharge to his parent's house. Patient has no new complaints today. Vital signs stable. Objective - Vital Signs Vital signs: Vital Signs Temp 97.7 F 05/17/23 09:38 Pulse 93 05/17/23 08:15 Resp 17 05/17/23 08:15 BP 151/81 05/17/23 08:15 Pulse Ox 95 05/17/23 08:15 FiO2 Intake & Output 05/16/23 05/17/23 05/17/23 18:59 06:59 18:59 Intake Total 300 Balance 300 Intake: Oral 300 Other: Voiding Method Toilet # Voids 1 3 - Exam On examination, patient is sitting up in the bedside chair in no apparent distress. He is alert and orientated x3. On inspection of the right knee, there is a clean, dry, intact Optifoam dressing in place. No bleeding or drainage to the dressing. Mild swelling. Motor and sensory function intact of the right lower extremity. Right lower extremity warm and well perfused. Calf non-tender. - Labs CBC & Chem 7: 05/16/23 05:48 05/16/23 05:48 Assessment and Plan Assessment: Right total knee arthroplasty 05/15/23. Post-op day #2. Plan: Patient will discharge home today with home health care. He should follow-up in the office at [facility] in two weeks. Please see discharge orders.
--- NOTE | 2023-05-17 11:34 | P.PN ---
Subjective Progress Note Date: 05/17/23 Subjective: Patient seen and examined at bedside. No acute events overnight. Right knee pain is better. Denies any other new complaints. Pertinent positives and negatives as discussed above, a complete review of systems was performed and all other systems are negative. Vitals Signs Reviewed. General: nontoxic, no distress, appears at stated age, obese Derm: warm, dry, dressing clean, dry, intact Head: atraumatic, normocephalic, symmetric Eyes: EOMI, no lid lag, anicteric sclera Mouth: no lip lesion, mucus membranes moist Cardiovascular: S1S2 reg, no murmur Lungs: CTA bilateral, no rhonchi, no rales , no accessory muscle use Abdominal: soft, nontender to palpation, no guarding, no appreciable organomegaly Ext: no gross muscle atrophy, no edema, no contractures Neuro: CN II-XI grossly intact, no focal neuro deficits Psych: Alert, oriented, appropriate affect Data Reviewed Today: Pertinent Labs: No new labs Imaging: No new imaging today Assessment and Plan: Osteoarthritis status post right TKA Hypertension Obesity class III -Pain control with oral [place] as needed, IV Dilaudid as needed -Aspirin 81 mg twice a day for DVT prophylaxis -Blood pressure now well controlled with adequate pain control -Counseled regarding lifestyle modifications to reduce weight Patient is medically optimized for discharge home. Thank you for allowing us to participate in the care of this pleasant patient. Do not hesitate to contact us with questions. Someone can be reached from the [facility] hospitalist group all hours of the day at [phone] or via [employer] serve. Objective - Vital Signs Vital signs: Vital Signs Temp 97.7 F 05/17/23 09:38 Pulse 93 05/17/23 08:15 Resp 17 05/17/23 08:15 BP 151/81 05/17/23 08:15 Pulse Ox 95 05/17/23 08:15 FiO2 Intake & Output 05/16/23 05/17/23 05/17/23 18:59 06:59 18:59 Intake Total 300 Balance 300 Intake: Oral 300 Other: Voiding Method Toilet # Voids 1 3 - Labs CBC & Chem 7: 05/16/23 05:48 05/16/23 05:48
[2023-05-17] MEDS: LACTATED RINGERS 1,000 ML IV SCH ×2 (11:38)
== END 2023-05-17 15:00 | disposition home health service (06) ==
LOC: OR 10:50 → 4SSUR 15:07 → OR 05-17 15:00
PROVIDERS: ATTEND Orthopaedic Surgery
DX: M17.11 Unilateral primary osteoarthritis, right knee (principal); G89.18 Other acute postprocedural pain; E78.5 Hyperlipidemia, unspecified; M21.161 Varus deformity, not elsewhere classified, right knee; M21.162 Varus deformity, not elsewhere classified, left knee; Z90.89 Acquired absence of other organs; Z79.899 Other long term (current) drug therapy; Z83.3 Family history of diabetes mellitus; Z86.59 Personal history of other mental and behavioral disorders
CPT/HCPCS: 97530; 97162; 64447; 64999; 80048; 83735; 85025; 73560; 27447; C1776; C1713; J2250; J3370; J1100; J0690 ×2; J2405; J1885; J1170; J3010

== ENCOUNTER → 2023-08-21 | Outpatient (CLI) | payer OTHER ==
[2023-08-21 12:55] LABS: Partial Thromboplastin Time 24.8 sec (22.0-30.0); Prothrombin Time 10.2 sec (9.0-12.0)
[2023-08-21 16:10] LABS: Blood Urea Nitrogen 21.5 mg/dL (9.0-27.0); Glucose 120 mg/dL (70-110)
[2023-08-21 16:11] LABS: ALT 37 U/L (10-49); AST 21 U/L (14-35); Albumin 4.4 d/dL (3.8-4.9); Albumin/Globulin Ratio 1.83 Ratio (1.60-3.17); Alkaline Phosphatase 69 U/L (41-126); Calcium 9.8 mg/dL (8.7-10.3); Carbon Dioxide 22.9 mmol/L (21.6-31.8); Chloride 106 mmol/L (96-109); Globulin 2.4 d/dL (1.6-3.3); Potassium 4.2 mmol/L (3.5-5.5); Sodium 142 mmol/L (135-145); Total Bilirubin 0.3 mg/dL (0.3-1.2); Total Protein 6.8 d/dL (6.2-8.2)
[2023-08-21 16:24] LABS: HCT 45.7 % (39.6-50.0); HGB 15.1 d/dL (13.0-17.0); MCH 27.4 pg (27.0-32.0); MCV 82.8 FL (80.0-97.0); Mean Platelet Volume 10.4 FL (9.5-12.2); NRBC Per 100 WBC 0 X 10*3/uL (0.00-0.01); Platelet Count 191 X 10*3/uL (140-440); RBC 5.52 X 10*6/uL (4.40-5.60); RDW 14.5 % (11.5-14.5); WBC 7.67 X 10*3/uL (4.50-10.00)
[2023-08-21 16:35] LABS: Appearance,Urine Clear (Clear); Bilirubin,Urine Negative (Negative); Blood,Urine Negative (Negative); Color,Urine Dark Yellow (Yellow); Ketones,Urine Negative (Negative); Nitrite,Urine Negative (Negative); PH, Urine 5.5; Specific Gravity,Urine 1.025 (1.001-1.030)
[2023-08-21 17:02] LABS: Bacteria,Urine None Seen (None Seen)
== END | disposition home or self-care (01) ==
LOC: LABPAT 11:58
PROVIDERS: ATTEND Orthopaedic Surgery
DX: Z01.812 Encounter for preprocedural laboratory examination (principal); M17.12 Unilateral primary osteoarthritis, left knee; R00.0 Tachycardia, unspecified; R94.31 Abnormal electrocardiogram [ECG] [EKG]
CPT/HCPCS: 36415; 80053; 81001; 85027; 85610; 85730; 87070; 93005

== ENCOUNTER → 2023-08-21 | Outpatient (CLI) | payer OTHER ==
--- NOTE | 2023-08-21 12:26 | CT ---
EXAMINATION TYPE: CT left knee - [facility] Protocol CT DLP: 1149 mGycm, Automated exposure control for dose reduction was used. DATE OF EXAM: 08/21/2023 11:57 AM COMPARISON: 08/21/2023 CLINICAL INDICATION:Male, 48 years old with history of M25.562 PAIN IN LEFT KNEE, paulina protocol TECHNIQUE: Axial images were obtained of the left knee . Additional coronal and sagittal reformatted images and soft tissue and bone window were obtained for review. . Contrast used: mL of , None Oral contrast used: None FINDINGS: The visualized portion of the hips demonstrate mild osteoarthrosis changes with osteophyte formation of the acetabulum. No acute intrapelvic process. The bony structures of the pelvis are intact. The visualized knee demonstrates osteophyte formation of the tibial plateau the patella and femoral c ondyles. There is joint space narrowing and subchondral sclerosis. No evidence of fracture. Calcified joint body noted anteriorly along the intercondylar eminence. Visualized ankle demonstrates multifocal osteoarthrosis changes with osteophyte formation and mild ruddy int space narrowing. No evidence of fractures. IMPRESSION: End-stage osteoarthrosis changes of the left knee.
== END | disposition home or self-care (01) ==
LOC: RADCTMAIN 11:02
PROVIDERS: ATTEND Orthopaedic Surgery
DX: M17.12 Unilateral primary osteoarthritis, left knee (principal)

== ENCOUNTER → 2023-09-05 | Outpatient (CLI) | payer OTHER ==
--- NOTE | 2023-09-05 12:05 | CT ---
EXAMINATION TYPE: CT left knee - [facility] Protocol DATE OF EXAM: 09/05/2023 HISTORY: pre op [facility] eval CT DLP: 973.[address] of the left lower extremity was performed for preoperative planning and evaluation. FINDINGS: Moderate degenerative narrowing medial tibiofemoral joint space with instability suggested. There is well-corticated loose body noted in the region of Hoffa's fat pad. There is mild widening of the late ral tibiofemoral joint space. Severe narrowing patellofemoral joint space. Intercondylar spur formati on as well as spurring about the margins of the femoral condyles, tibial plateaus as well as the flanagan llar poles. There is mild degenerative narrowing about the hip joints. Ankle joints are unremarkable. IMPRESSION: 1. Osteoarthritis.
== END | disposition home or self-care (01) ==
LOC: RADCTMAIN 10:58
PROVIDERS: ATTEND Orthopaedic Surgery
DX: Z01.818 Encounter for other preprocedural examination (principal); M17.0 Bilateral primary osteoarthritis of knee; M21.162 Varus deformity, not elsewhere classified, left knee; Z96.651 Presence of right artificial knee joint

== ENCOUNTER 2023-09-10 07:23 | Day surgery (SDC) | payer OTHER ==
[2023-09-09 08:47] VITALS: BMI 41.5
[~2023-09-10 07:23] MED LIST changes: -ROPIVACAINE/EPI/CLONIDINE/KET 50 ML SYRINGE MISCELLANE PRN; -VANCOMYCIN 1,750 MG in SODIUM CHLORIDE 0.9% 500 ML 500 ML IVPB PRN
[2023-09-10] MEDS: LACTATED RINGERS 1,000 ML IV SCH ×3 (08:18→21:11)
[2023-09-10] MEDS ORDERED: fentaNYL (PF) 50 MCG/ML 2 ML AMP IVP ONE (08:31)
[2023-09-10] MEDS ORDERED: MIDAZOLAM 2 MG/2 ML VIAL IVP ONE (08:31)
[2023-09-10] MEDS: ROPIVACAINE/EPI/CLONIDINE/KET 50 ML SYRINGE MISCELLANE PRN ×3 (09:16→10:16)
[2023-09-10] MEDS ORDERED: HYDROmorphone (PF) 1 MG/ML ONE (09:17)
[2023-09-10] MEDS ORDERED: TRANEXAMIC 1,000 MG/100ML-NACL PREMIX BAG ONE (09:17)
[2023-09-10] MEDS ORDERED: GLYCOPYRROLATE 0.2 MG/ML 2 ML VIAL ONE (09:17)
[2023-09-10] MEDS ORDERED: NEOSTIGMINE 1 MG/ML 10 ML VIAL ONE (09:17)
[2023-09-10] MEDS ORDERED: ROCURONIUM 10 MG/ML (5 ML VIAL) IV ONE (09:17)
[2023-09-10] MEDS ORDERED: ROPIVACAINE 5 MG/ML 30 ML VIAL ONE (09:17)
[2023-09-10] MEDS ORDERED: SUCCINYLCHOLINE CHLORIDE 200 MG/10 ML VIAL IV ONE (09:17)
[2023-09-10] MEDS ORDERED: LIDOCAINE 1% INJ 10MG/ML (20 ML MDV) ONE (09:17)
[2023-09-10] MEDS ORDERED: fentaNYL (PF) 50 MCG/ML 2 ML AMP ONE (09:17)
[2023-09-10] MEDS ORDERED: PROPOFOL 10 MG/ML 20 ML VIAL IV ONE (09:17)
[2023-09-10] MEDS ORDERED: PHENYLEPHRINE-0.9% NACL SYG 1,000 MCG/10 ML SYRINGE ONE (09:17)
--- NOTE | 2023-09-10 09:40 | P.ANPRN ---
Procedure Note - Anesthesia - Nerve Block Performed Left Adductor Canal Single Time Out Performed: Yes (0830) Date of Procedure: 09/10/23 Procedure Start Time: : Procedure Stop Time: :36 Location of Patient: PreOp Indication: Acute Post-Operative Pain, Requested by Surgeon Specifically requested for management of pain by DrBin: Michael Guardado Sedation Type: Sedate with meaningful contact maintained Preparation: Sterile Prep Position: Supine Catheter: None Needle Types: Pajunk Needle Gauge: 21 Ultrasound used to visualize needle placement: Yes Ultrasound used to observe medication spread: Yes Injectate: 0.5% Ropivacaine (see comment for volume) (20cc) Blood Aspirated: No Pain Paresthesia on Injection Noted: No Resistance on Injection: Normal Image Stored and Saved: Yes Events: Uneventful and Well Tolerated
--- NOTE | 2023-09-10 09:41 | P.ANPRN ---
Procedure Note - Anesthesia - Nerve Block Performed Left iPack Single Time Out Performed: Yes (829) Date of Procedure: 09/10/23 Procedure Start Time: :37 Procedure Stop Time: :42 Location of Patient: PreOp Indication: Acute Post-Operative Pain, Requested by Surgeon Specifically requested for management of pain by DrBin: Michael Guardado Sedation Type: Sedate with meaningful contact maintained Preparation: Sterile Prep Position: Supine Catheter: None Needle Types: Pajunk Needle Gauge: 21 Ultrasound used to visualize needle placement: Yes Ultrasound used to observe medication spread: Yes Injectate: 0.5% Ropivacaine (see comment for volume) (20cc) Blood Aspirated: No Pain Paresthesia on Injection Noted: No Resistance on Injection: Normal Image Stored and Saved: Yes Events: Uneventful and Well Tolerated
--- NOTE | 2023-09-10 11:15 | P.OP ---
Date of Procedure: 09/10/23 Preoperative Diagnosis: 1. Severe left knee osteoarthritis 2. BMI 40.8 3. History of right total knee arthroplasty Postoperative Diagnosis: Same Procedure(s) Performed: 1. Left total knee arthroplasty 2. Computer assisted musculoskeletal navigation using CT/MRI images 3. Application of negative pressure incisional wound VAC less than 50 cm, left knee, incision measuring 25 cm (an incisional wound VAC was utilized due to the patient's BMI and history of delayed healing on his contralateral knee replacement) Implants: 1. [employer] CR Femur Size #5 2. [place] [employer] [place] Tibial Base Size #5 3. [place] [employer] CS poly Size #10-mm 4. [employer] all poly patella, Size #35 Anesthesia: DIAN, regional Surgeon: Michael Guardado Charge Gang Weigher #1: Ana Malhotra Estimated Blood Loss (ml): 100 IV fluids (ml): 600 Pathology: none sent Condition: stable Disposition: PACU Indications for Procedure: This is a very pleasant 48-year-old male who previously underwent a right total knee replacement. He did well with this and requested proceeding with his left which was equally arthritic. I met with the patient preoperatively in the office setting and discussed treatment of their symptomatic knee arthritis. They failed a long course of nonsurgical treatment and elected to proceed with an elective total knee replacement. I discussed the potential risks and complications at length and gave them ample time to ask questions. Risks discussed included: risks from anesthesia, superficial site surgical infection, acute and/or chronic periprosthetic joint infection, delayed wound healing, drainage, wound necrosis, instability, stiffness, stiffness requiring manipulation and/or revision surgery, damage to local blood vessels or nerves, aseptic loosening of the implants, extensor mechanism issues including disruption, patellar maltracking, avascular necrosis etc., continued or worsened knee pain, generalized dissatisfaction with surgical outcome, need for revision surgery, an inability to regain preinjury level of function, DVT, PE, other medical complications, and possibly loss of life or limb. The patient voiced their understanding that while these are the most common complications other less common complications are possible. They provided both their verbal and written consent to go forward with surgery. Operative Findings: Dear tricompartmental knee osteoarthritis with complete loss of joint space throughout the knee Description of Procedure: The patient was identified in preoperative holding and the correct operative extremity was verified and marked with a marker. I reviewed the consent form with the patient at length. All of their questions were answered. The patient was given a block by anesthesia. They were then brought back to the operating room. They were transferred onto the operating room table where a general anesthetic, preoperative antibiotics, and tranexamic acid were administered by anesthesia. A tourniquet was applied to the proximal aspect of the operative extremity. The contralateral extremity was padded under the heel and secured to the operating room table with a nonsterile blue towel and tape. The ipsilateral arm was carefully draped across the patient's chest and secured with a pillow and foam. A post was applied over the lateral aspect of the ipsilateral thigh and a bolster was placed under the ipsilateral foot. I verified that the operative extremity was stable and the knee was flexed to 90. The operative extremity was then placed in a leg son, nonsterile drapes were applied, and the extremity was prepped and draped sterilely in the standard sterile fashion. Prior to starting surgery timeout was performed identifying the correct patient, operative extremity, and procedure. The leg was then elevated, exsanguinated with an Esmarch bandage, and the tourniquet was inflated. An anterior midline incision was made sharply with a scalpel. Once I had dissected deep to the superficial fascial layer medial and lateral flaps were elevated. A medial parapatellar arthrotomy was created. Upon opening the knee joint there were diffuse arthritic changes in all 3 compartments. The anterior horn of the medial meniscus were sharply released and a medial release was performed around the posterior medial corner of the knee to facilitate retractor placement. The fat pad was excised with electrocautery. The patella was found to be severely arthritic and a provisional cut was made with a sagittal saw to facilitate mobilization of the extensor mechanism during the procedure. Remnants of the ACL and PCL were then excised from the notch. 4 mm pins were then placed within the incision in the medial distal femur and proximal tibia. Arrays were applied to the pins and I verified they were completely tightened. The knee was then registered with the [employer] robot and manipulations in implant position were made to balance the knee and opitmize implant position. Using the [employer] robotic saw all cuts were made in accordance with our plan. After all bony fragments had been removed the cuts were verified with the planar probe. The tibia was then subluxed forward and sized. The knee was brought into flexion and a lamina medical technologist microbiology was placed to allow removal of the meniscal remnants both medially and laterally as well as posterior osteophytes. Local anesthetic was then infiltrated around the joint capsule. Trial implants were then placed within the knee. Range of motion and collateral ligament tension was then evaluated. Adjustments in implant size and position were then made accordingly. Once the knee was felt to be appropriately balanced the Sanjiv pins were removed. The patella was then recut, sized, and punched. A trial patellar button was then placed. With the trial components in place, the patella tracked midline. The femur was then drilled and the trial component removed. The trial tibial component was then appropriately rotated, pinned, and prepared for the keel. All trial components were then removed from the knee. The knee was thoroughly irrigated with pulsatile lavage. Cement was prepared via vacuum mixing in a bowl on the back table. I then hand pressurized cement into the femur and tibia and placed the implants beginning with the tibial base tray and poly liner, femoral component, and finally the patellar button. All extruded cement was removed including from the pin sites. Once the cement had hardened the knee was evaluated one final time with the final polyethylene liner in place. The knee had full extension and flexion and felt stable to varus and valgus stress throughout the arc of motion. The tourniquet was released and with the tourniquet down the patella tracked midline. All bleeders were controlled with electrocautery. The knee was then soaked for 3 minutes with a dilute Betadine soak. The knee was thoroughly irrigated using 3 L of sterile saline and pulsatile lavage. A deep drain was placed. The extensor mechanism was then reapproximated using pop off Vicryl sutures followed by a running barbed suture. The knee was then closed in layers with a 0 strata fix for the deep fascial layer, 2-0 strata fix for the superficial subcutaneous layer and Monocryl and Steri-Strips for the skin. A sterile dressing and drain sponge were applied - due to the patient's BMI and delayed wound healing on his contralateral knee replacement an incisional wound VAC was placed over his incision after was closed. I verified that all instrument, sponge, and sharp counts were correct. The patient was then transferred off the operating room table, extubated, and brought to recovery having tolerated the procedure well. Ana Malhotra PA-C was required as a skilled assistant store manager operations due to the complexity of the procedure for patient positioning, draping, retraction, placement of hardware, and closure of wound. PLAN: The patient can weight-bear as tolerated on the operative extremity. DVT prophylaxis with aspirin 81 mg twice a day based on preoperative risk stratification. Follow-up in the office in 2 weeks for wound check and x-rays of the knee including an AP and lateral.
[2023-09-10] MEDS ORDERED: ONDANSETRON 4 MG/2 ML VIAL IVP PRN (11:39)
[2023-09-10] MEDS ORDERED: HYDROmorphone 1 MG/ML 1 ML SYRINGE IVP PRN (11:39)
[2023-09-10] MEDS ORDERED: HYDROmorphone 0.5 MG/0.5 ML SYRINGE IVP PRN ×2 (11:39)
[2023-09-10] MEDS ORDERED: hydrOXYzine pamoate 25 MG CAP PO PRN (11:39)
[2023-09-10] MEDS ORDERED: NALOXONE 0.4 MG/ML 1 ML VIAL IV PRN (11:39)
--- NOTE | 2023-09-10 12:04 | XR ---
EXAMINATION TYPE: XR knee limited LT DATE OF EXAM: 09/10/2023 CLINICAL HISTORY: Postoperative evaluation Two views of the left knee are submitted. Identified are changes of total knee arthroplasty with fem oral and tibial components appearing well seated. Postsurgical soft tissue changes are noted. Align ment is anatomic.
[2023-09-10] MEDS: HYDROcodone/APAP 5-325MG 1 EACH TAB PO PRN (17:35)
[2023-09-10] MEDS: ceFAZolin 3 GM in SODIUM CHLORIDE 0.9% 100 ML IVPB SCH (17:35)
--- NOTE | 2023-09-10 18:23 | P.CONS ---
History of Present Illness - Reason for Consult Consult date: 09/10/23 GERD Requesting physician: Michael Guardado - Chief Complaint knee pain - History of Present Illness Patient is a 48-year-old male for history of GERD, osteoarthritis, and prior HLD not requiring any medications currently who presented for elective left total knee arthroplasty. Patient seen and examined at bedside. He is having some numbness in his left leg which is concerning to him. He is not having any significant pain in the left knee. He denies any chest pain, shortness breath, nausea, vomiting. He denies any recent cough, cold, fever, flu. Vital signs reviewed General: nontoxic, no distress, appears at stated age Derm: warm, dry Eyes: EOMI, no lid lag, anicteric sclera, Cardiovascular: S1S2 reg, no murmur, positive posterior tibial pulse bilateral, no edema, Lungs: Decreased breath sounds bilateral, no rhonchi, no rales, no wheeze, no accessory muscle use Abdominal: soft, nontender to palpation, no guarding, no appreciable organomegaly, normal bowel sounds Ext: no gross muscle atrophy, no contractures, left knee with Hemovac and wound vac in place. Neuro: CN II-XII grossly intact, numbness left lower calf and foot no other focal neuro deficits noted Psych: Alert, oriented, appropriate affect Assessment/Plan: 48-year-old male status post left total knee arthroplasty GERD -Protonix 20 mg daily Class III obesity with BMI 40.8 -Outpatient structured weight loss HLD - not requiring medications - Outpatient follow-up Imaging: none new Data Review: Preoperative blood work reviewed with creatinine 1, hemoglobin 15.1 Thank you for allowing us to participate in the care of this pleasant patient. Do not hesitate to contact us with questions. Someone can be reached from the [facility] [place] hospitalist group all hours of the day at [phone] or via [employer]. This dictation was prepared using [employer] voice recognition software. Though every attempt is made to correct errors during dictation some may still exist. Past Medical History Past Medical History: GERD/Reflux, Hearing Disorder / Deafness, Hyperlipidemia, Osteoarthritis (OA) Additional Past Medical History / Comment(s): LOW IRON. Hard of hearing. History of Any Multi-Drug Resistant Organisms: None Reported Year Discovered:: 04/2023 MDRO Source:: nasal swab Past Surgical History: Appendectomy, Joint Replacement Additional Past Surgical History / Comment(s): Right knee replacement, left knee replacement - 09/10/23. Past Anesthesia/Blood Transfusion Reactions: No Reported Reaction Past Psychological History: No Psychological Hx Reported Smoking Status: Former smoker Past Alcohol Use History: Rare Additional Past Alcohol Use History / Comment(s): Used to smoke socially occasionally. Past Drug Use History: Marijuana Additional Drug Use History / Comment(s): CBD GUMMIES. STATES NONE RECENTLY. - Past Family History Mother Family Medical History: Cancer Additional Family Medical History / Comment(s): Kidney and pancreatic cancer. Medications and Allergies Home Medications Medication Instructions Recorded Confirmed Type Cinnamon Bark [Cinnamon] 500 mg PO DAILY 05/26/21 09/09/23 History Iron. 1 tab PO DAILY 05/26/21 09/09/23 History Naproxen Sodium [Aleve] 220 mg PO BID PRN 05/26/21 09/09/23 History Vit B. 1 tab PO DAILY 05/26/21 09/09/23 History Vit C. 1 tab PO DAILY 05/26/21 09/09/23 History Vit D3 1 tab PO DAILY 05/26/21 09/09/23 History Omeprazole [PriLOSEC] 20 mg PO AC-BRKFST #90 cap 05/30/21 09/10/23 Rx Turmeric (Unknown Dose) 1 tab PO DAILY 09/09/23 09/09/23 History Allergies Allergy/AdvReac Type Severity Reaction Status Date / Time No Known Allergies Allergy Verified 09/09/23 08:40 Physical Exam Osteopathic Statement: *. No significant issues noted on an osteopathic structural exam other than those noted in the History and Physical/Consult. Vitals: Vital Signs Temp Pulse Pulse Pulse Resp BP BP 09/10/23 15:43 70 09/10/23 15:28 67 09/10/23 15:13 71 09/10/23 14:58 95 09/10/23 14:28 75 09/10/23 14:20 95 09/10/23 13:45 77 16 130/72 09/10/23 13:30 86 16 122/71 09/10/23 13:15 79 16 125/72 09/10/23 13:00 87 16 125/72 09/10/23 12:45 79 16 140/73 09/10/23 12:31 80 16 129/78 09/10/23 12:19 99 16 139/79 09/10/23 12:10 81 16 141/74 09/10/23 11:54 99 16 148/64 09/10/23 11:39 97.1 F L 98 12 136/66 09/10/23 08:42 78 16 112/74 09/10/23 08:04 98.0 F 99 18 124/87 BP Pulse Ox 09/10/23 15:43 107/71 93 L 09/10/23 15:28 114/74 90 L 09/10/23 15:13 117/74 93 L 09/10/23 14:58 135/84 95 09/10/23 14:28 116/74 94 L 09/10/23 14:20 124/78 89 L 09/10/23 13:45 95 09/10/23 13:30 93 L 09/10/23 13:15 93 L 09/10/23 13:00 93 L 09/10/23 12:45 93 L 09/10/23 12:31 96 09/10/23 12:19 96 09/10/23 12:10 91 L 09/10/23 11:54 95 09/10/23 11:39 95 09/10/23 08:42 94 L 09/10/23 08:04 95 Intake and Output 09/10/23 09/10/23 09/10/23 06:59 14:59 22:59 Intake Total 1000 720 Output Total 100 80 Balance 900 640 Intake: IV 1000 Oral 720 Output: Drainage 80 Left Knee 80 Estimated Blood Loss 100 Other: # Voids 0 Weight 125.4 kg
[2023-09-10] MEDS ORDERED: SENNOSIDES-DOCUSATE SODIUM 1 EACH TAB PO SCH (21:00)
[2023-09-10] MEDS: ASPIRIN 81 MG PO SCH (21:11)
[2023-09-11] MEDS: ceFAZolin 3 GM in SODIUM CHLORIDE 0.9% 100 ML IVPB SCH (01:16)
[2023-09-11] MEDS: HYDROcodone/APAP 5-325MG 1 EACH TAB PO PRN ×3 (01:23→14:52)
[2023-09-11] MEDS: LACTATED RINGERS 1,000 ML IV SCH ×2 (06:48→11:22)
[2023-09-11] MEDS ORDERED: PANTOPRAZOLE 40 MG TABLET PO SCH (07:30)
[2023-09-11] MEDS: ASPIRIN 81 MG PO SCH (08:01)
[2023-09-11 08:42] VITALS: RESP 19
--- NOTE | 2023-09-11 09:19 | P.DS ---
Providers Expected date of discharge: 09/11/23 Attending physician: Michael Guardado Consults: 09/10/23 11:39 Consult Physician Routine Consulting Provider: Claritza Villagomez Consult Reason/Comments: medical management Do you want consulting provider notified?: Yes Primary care physician: Anthony Dobbins [facility] Hospital Course: This is a 48-year-old male who has been followed in our office by Dr. Guardado for continued complaints of left knee pain due to left knee osteoarthritis. Treatment options were discussed, and patient elected to undergo a left total knee arthroplasty. Patient was seen pre-operatively by Dr. Dobbins and cleared for surgery. Patient underwent a left total knee arthroplasty on 09/10/[address] Guardado. The procedure was performed without complication or sequelae. The patient is doing fairly well postoperatively. Vital signs and labs are stable on postoperative day #1. Patient was examined bedside this morning. Patient states he is overall doing well and the pain in the left knee is well-controlled. He has been ambulating with a walker with minimal assistance. Patient will work with physical therapy this morning before returning home. Patient is comfortable being discharged home today. Patient has no new complaints this morning. On examination, the patient is sitting up in bed in no apparent distress. He is alert and orientated 3. On inspection of the left knee, there is a clean, dry, intact Prevena wound vac in place. Wound vac has a good seal at this time. Patient has good strength and ROM of the left ankle and toes. Motor and sensory function is intact of the left lower extremity. The dorsalis pedis pulse is easily palpable, the left lower extremity is warm and well perfused with brisk capillary refill. Calf is soft and non-tender to palpation. Hemovac drain removed bedside this morning during examination. Patient is discharged home with home health care today in good condition, pending medical clearance. Patient will follow-up in the office at [facility] in 2 weeks. Please see med rec for accurate list of discharge medication. Plan - Discharge Summary Discharge Rx Participant: Yes New Discharge Prescriptions: New Docusate [Colace] 100 mg PO BID #60 capsule Omeprazole 40 mg PO DAILY 30 Days #30 cap Aspirin 81 mg PO BID 30 Days #60 tab HYDROcodone/APAP 5-325MG [Collbr[place] 5-325] 1 - 2 tab PO Q6HR PRN 7 Days #32 tab PRN Reason: Pain Diclofenac Sodium [Voltaren] 75 mg PO BID 30 Days #60 tab No Action Vit D3 1 tab PO DAILY Vit C. 1 tab PO DAILY Naproxen Sodium [Aleve] 220 mg PO BID PRN PRN Reason: Pain Vit B. 1 tab PO DAILY Iron. 1 tab PO DAILY Cinnamon Bark [Cinnamon] 500 mg PO DAILY Omeprazole [PriLOSEC] 20 mg PO AC-BRKFST #90 cap Turmeric (Unknown Dose) 1 tab PO DAILY Discharge Medication List Cinnamon Bark [Cinnamon] 500 mg PO DAILY 05/26/21 [History] Iron. 1 tab PO DAILY 05/26/21 [History] Naproxen Sodium [Aleve] 220 mg PO BID PRN 05/26/21 [History] Vit B. 1 tab PO DAILY 05/26/21 [History] Vit C. 1 tab PO DAILY 05/26/21 [History] Vit D3 1 tab PO DAILY 05/26/21 [History] Omeprazole [PriLOSEC] 20 mg PO AC-BRKFST #90 cap 05/30/21 [Rx] Turmeric (Unknown Dose) 1 tab PO DAILY 09/09/23 [History] Aspirin 81 mg PO BID 30 Days #60 tab 09/11/23 [Rx] Diclofenac Sodium [Voltaren] 75 mg PO BID 30 Days #60 tab 09/11/23 [Rx] Docusate [Colace] 100 mg PO BID #60 capsule 09/11/23 [Rx] HYDROcodone/APAP 5-325MG [Collbran 5-325] 1 - 2 tab PO Q6HR PRN 7 Days #32 tab 09/11/23 [Rx] Omeprazole 40 mg PO DAILY 30 Days #30 cap 09/11/23 [Rx] Follow up Appointment(s)/Referral(s): Michael Guardado MD [Medical Doctor] - 2 Weeks Activity/Diet/Wound Care/Special Instructions: Weight bear to tolerance on operative extremity with a walker. Keep the Prevena wound VAC in place until follow-up in the office. Call the office with any questions or concerns regarding the wound VAC. Take pain medications as needed. Take aspirin 81mg BID x 4 weeks for blood clot prevention. Follow-up in the office in two weeks at [facility]. Call the office with any questions or concerns, Discharge Disposition: HOME WITH HOME HEALTH SERVICES
[2023-09-11 10:20] LABS: Basophils # (A) 0.01 X 10*3/uL (0.00-0.10); Basophils % (A) 0.1 %; Eosinophils # (A) 0.01 X 10*3/uL (0.04-0.35); Eosinophils % (A) 0.1 %; HCT 40.9 % (39.6-50.0); HGB 13.4 d/dL (13.0-17.0); Lymphocytes # (A) 1.97 X 10*3/uL (0.90-5.00); Lymphocytes % (A) 12.4 %; MCH 27.3 pg (27.0-32.0); MCHC 32.8 d/dL (32.0-37.0); MCV 83.3 FL (80.0-97.0); Mean Platelet Volume 10.2 FL (9.5-12.2); Monocytes # (A) 0.95 X 10*3/uL (0.20-1.00); NRBC Per 100 WBC 0 X 10*3/uL (0.00-0.01); Neutrophils # (A) 12.86 X 10*3/uL (1.80-7.70); Neutrophils % (A) 81.1 %; Platelet Count 214 X 10*3/uL (140-440); RBC 4.91 X 10*6/uL (4.40-5.60); RDW 14.6 % (11.5-14.5); WBC 15.85 X 10*3/uL (4.50-10.00)
--- NOTE | 2023-09-11 11:38 | P.PN ---
Subjective Progress Note Date: 09/11/23 Patient is a 48-year-old male for history of GERD, osteoarthritis, and prior HLD not requiring any medications currently who presented for elective left total knee arthroplasty. Patient seen and examined at bedside. He is doing well. He has already worked with therapy. He did well. He looks comfortable going home. Has not had any lightheadedness, dizziness or shortness of breath. Vital signs reviewed General: nontoxic, no distress, appears at stated age Cardiovascular: S1S2 reg, no murmur, positive posterior tibial pulse bilateral, Lungs: CTA bilateral, no rhonchi, no rales , no accessory muscle use Ext: no gross muscle atrophy, 2+ edema left lower extremities, sound vac in place, no contractures Neuro: CN II-XI grossly intact, no focal neuro deficits Psych: Alert, oriented, appropriate affect Assessment/Plan: 48-year-old male status post left total knee arthroplasty GERD -Resume omeprazole 40 mg daily at home Class III obesity with BMI 40.8 -Outpatient structured weight loss HLD - not requiring medications - Outpatient follow-up - medically optimized for discharge. Imaging: None new Data Review: Laboratory CBC was remarkable for white blood cell count 15.5 This dictation was prepared using [employer] voice recognition software. Though every attempt is made to correct errors during dictation some may still exist. Objective - Vital Signs Vital signs: Vital Signs Temp 98.4 F 09/11/23 07:33 Pulse 83 09/11/23 07:33 Resp 19 09/11/23 07:33 BP 124/68 09/11/23 07:33 Pulse Ox 94 L 09/11/23 07:33 FiO2 Intake & Output 09/10/23 09/11/23 09/11/23 18:59 06:59 18:59 Intake Total 1720 Output Total 180 220 Balance 1540 -220 Weight 125.4 kg Intake: IV 1000 Oral 720 Output: Drainage 80 220 Left Knee 80 220 Estimated Blood Loss 100 Other: # Voids 0 1 - Labs CBC & Chem 7: 09/11/23 05:21 Labs: Abnormal Lab Results - Last 24 Hours (Table) 09/11/23 Range/Units 05:21 WBC 15.85 H (4.50-10.00) X 10*3/uL RDW 14.6 H (11.5-14.5) % Neutrophils # 12.86 H (1.80-7.70) X 10*3/uL Eosinophils # 0.01 L (0.04-0.35) X 10*3/uL
[2023-09-11 14:32] VITALS: BP 121/82; PULSE 105; TEMP 99.3
== END 2023-09-11 15:16 | disposition home health service (06) ==
LOC: OR 07:23 → 4SSUR 11:23 → OR 09-11 15:16
PROVIDERS: ATTEND Orthopaedic Surgery
DX: M17.12 Unilateral primary osteoarthritis, left knee (principal); G89.18 Other acute postprocedural pain; K21.9 Gastro-esophageal reflux disease without esophagitis; E78.5 Hyperlipidemia, unspecified; E66.01 Morbid (severe) obesity due to excess calories; Z79.899 Other long term (current) drug therapy; Z96.653 Presence of artificial knee joint, bilateral; Z68.41 Body mass index [BMI] 40.0-44.9, adult; Z90.49 Acquired absence of other specified parts of digestive tract; Z87.891 Personal history of nicotine dependence
CPT/HCPCS: 0055T; 27447; 64447; 64999; 85025